=== PATIENT | female | born 1955 | race Hispanic/Latino ===

== ENCOUNTER 2019-01-08 07:55 | Day surgery (SDC) | payer MEDICARE ==
[2019-01-08 08:22] VITALS: BMI 32.9
[2019-01-08] MEDS ORDERED: Methylene Blue 10 mg/mL(10ml) IV ONE ×4 (10:19→14:35)
[2019-01-08] MEDS ORDERED: Lactated Ringer's 500 ML IV ONE (10:48)
--- NOTE | 2019-01-08 10:48 | CP.SDSHP ---
Same Day Surgery H & P - History Proposed Procedure: colonoscopy Pre-Op Diagnosis: ulcerative colitis - Allergies Allergies: Allergies latex Allergy (Severe, Verified 01/17/17 07:54) BLISTERS metronidazole [From Flagyl] Allergy (Severe, Verified 01/17/17 07:54) BLISTERS/SWELLING - Physical Exam General Appearance: NAD Vital Signs: Vital Signs 01/08/19 08:22 Temperature 97.7 F Pulse Rate 80 Respiratory 20 Rate Blood Pressure 126/72 O2 Sat by Pulse 99 Oximetry Mental Status: Alert & Oriented x3 Neuro: WNL Heart: WNL Lungs: WNL GI: WNL - {Optional Preform as Required} Abdomen: WNL - Impression Pt. Evaluated Today:Candidate for Anesthesia & Procedure: Yes - Date & Time Date: 01/08/19 Time: 10:47 Short Stay Discharge - Short Stay Discharge Admitting Diagnosis/Reason for Visit: ULCERATIVE COLITIS, UNSPECIFIED, WITHOUT COMPLICAT Disposition: HOME/ ROUTINE
[2019-01-08] MEDS ORDERED: Propofol 10 mg/ml Inj (20 ML) ONE ×2 (10:54→11:08)
[2019-01-08 11:49] VITALS: TEMP 97.1
[2019-01-08 11:50] VITALS: O2SAT 100
[2019-01-08 12:41] VITALS: BP 112/73; PULSE 76; RESP 17
== END 2019-01-08 12:30 | disposition home or self-care (01) ==
LOC: C.ENDO 07:55
PROVIDERS: ATTEND Internal Medicine Gastroenterology
DX: K51.90 Ulcerative colitis, unspecified, without complications (principal); D12.0 Benign neoplasm of cecum; Z88.1 Allergy status to other antibiotic agents; K64.9 Unspecified hemorrhoids
CPT/HCPCS: 45380; 88305; J2704; J7120